=== PATIENT | male | born 1980 | race Caucasian/White ===

== ENCOUNTER 2021-03-29 00:56 | Emergency (ER) | payer OTHER, SELFPAY ==
[2021-03-29 01:07] VITALS: BP 129/99; PULSE 113; RESP 16; TEMP 37.7; O2SAT 98; BMI 34.0
--- NOTE | 2021-03-29 01:26 | PC.NURSE ---
Pt found sitting upright on edge of bed. Pt speaking full sentences, explains he got the covid vaccine on 03/13 with hives started on 03/14. Pt explains initially just a small rash but it has continued to spread each day. Pt taking Benadryl at home but explains he was too tired to do anything so he stopped taking it. Pt reports having a scratchy throat and coughing throughout the day which scared him and sent him to the ED.
--- NOTE | 2021-03-29 01:30 | PC.NURSE ---
at bedside for primary eval.
--- NOTE | 2021-03-29 01:35 | ED.ALLEREA ---
HPI - Allergic Reaction General Chief complaint: Allergic Reaction Stated complaint: allergic reaction/SOB Time Seen by Provider: 03/29/21 01:27 Source: patient Mode of arrival: ambulatory Limitations: no limitations History of Present Illness HPI narrative: 40-year-old male came in for evaluation of allergic reaction. Patient received his 3rd booster dose of COVID vaccination about 10 days ago, patient started to develop fractures and itching, no SOB or throat tightness. Patient stated that he is prone to hives in general. Patient otherwise declined using any new medication or eating new food, no change in patient daily lifestyle. Related Data Allergies Allergy/AdvReac Type Severity Reaction Status Date / Time prednisone Allergy Unknown Verified 03/29/21 01:28 Review of Systems Review of Systems: All other systems are reviewed and are negative Constitutional: Reports as per HPI and Reports no additional constitutional complaints Eyes: Reports as per HPI and Reports no additional eye complaints Reports system reviewed and no additional complaints, except as documented Cardiovascular: Reports as per HPI and Reports no additional cardiovascular complaints Respiratory: Reports as per HPI and Reports no additional respiratory complaints Gastrointestinal: Reports as per HPI and Reports no additional gastrointestinal complaints Genitourinary: Reports no additional female genitourinary complaints Musculoskeletal: Reports no additional musculoskeletal complaints Skin/Breast: Reports system reviewed and no additional complaints, except as docu Psychiatric: Reports no additional psychiatric complaints Endocrine: Reports no additional endocrine complaints Hematologic/Lymphatic: Reports no additional hematologic/lymphatic complaints Allergic/Immunologic: Reports no additional allergic/immunologic complaints Reports system reviewed and no additional complaints, except as documented and Reports Abnormal speech present [facility] Social History Social History Advance Directives: No Physical Exam Vital Signs: Vital Signs: Last Vital Signs Temp 100 F 03/29/21 01:07 Pulse 113 H 03/29/21 01:07 Resp 16 03/29/21 01:07 BP 129/99 H 03/29/21 01:07 Pulse Ox 98 03/29/21 01:07 Body Mass Index 34.0 Vital signs have been reviewed as appeared to be correct. Blood pressure normal. Heart rate elevated. Respiration rate normal. Temperature normal. Oxygen saturation normal. Appearance: Alert. Oriented X3. No acute distress. Head: Normal external exam. Normocephalic. Atraumatic. No Napoles signs noted. No raccoon eyes noted Eyes: PERRLA. EOMI. Conjunctiva and sclera normal. Eyelids normal. ENT: TM's Normal. Pharynx normal. Uvula midline. Moist mucous membranes. No trismus noted. No drooling noted. No muffled voice noted. No stridor. Neck: Normal inspection. Neck supple. FROM. No adenopathy. Thyroid Normal. No meningeal signs. No neck mass noted. CVS: Normal heart rate and rhythm. Heart sound normal. No murmurs noted. Pulses normal throughout. Respiratory: No respiratory distress. Painless inspiration. Breath sounds normal. No wheezes/rales/rhonchi noted. Chest nontender. No accessory muscle usage noted or decreased air movement noted. Abdomen: Soft and nontender. Bowel sounds normal in all 4 quadrants. No distention noted. No organomegaly noted. No visible injury noted. Back: No CVA tenderness. Full range of motion noted. Skin: Skin warm and dry. Normal skin color. Diffuse hives in the extremities and torso and the back. Extremities: No lower extremity edema. Extremities exhibit normal range of motion. Extremities nontender. Neuro: Oriented X 3. Cranial nerve exam: II-XII are grossly intact No motor deficit. No sensory deficit. Reflexes normal. Course Course Course Narrative: Assessment and plan. 40-year-old male came in after having allergic reaction to vaccination. Patient feels better with IV fluids/Solu-Medrol/Pepcid. No upper respiratory issue. Patient was instructed to drink plenty of fluid and use Benadryl/Pepcid for hives and itching. Discharge Plan Discharge Clinical Impression: Urticaria Patient Disposition: Home, Self-Care Instructions: Urticaria (ED) Referrals: Physician,Unknown [Primary Care Provider] - 2 days
[2021-03-29] MEDS: Famotidine/PF 20 MG/2 ML VIAL IVPUSH (01:40)
[2021-03-29] MEDS: 0.9 % Sodium Chloride 1,000 ML 999 ML IVCONT (01:40)
[2021-03-29] MEDS: diphenhydrAMINE HCL 50 MG/ML VIAL IVPUSH (01:40)
[2021-03-29] MEDS: methylPREDNISolone Sod Succ 125 MG/2 ML VIAL IVPUSH (01:41)
--- NOTE | 2021-03-29 01:42 | PC.NURSE ---
Medicated per MAR.
[2021-03-29 04:03] VITALS: BP 130/70; PULSE 86; RESP 16; O2SAT 98
== END 2021-03-29 04:04 | disposition home or self-care (01) ==
PROVIDERS: Emergency Provider Emergency Medicine
DX: L50.0 Allergic urticaria (principal)
CPT/HCPCS: 96361; 96374; 96375; 99284; J1200; J2930